=== PATIENT | female | born 1950 ===

== ENCOUNTER 2020-12-19 12:51 | Emergency (ER) | payer OTHER ==
[2020-12-19] MEDS ORDERED: Ketorolac Tromethamine 30 MG/ML VIAL ONE (13:54)
[2020-12-19] MEDS ORDERED: Metoprolol Tartrate 25 MG TAB ONE (13:54)
== END 2020-12-19 14:52 | disposition home or self-care (01) ==
LOC: NAV ERS 12:51
DX: I10 Essential (primary) hypertension (principal); R51.9 Headache, unspecified; Z85.3 Personal history of malignant neoplasm of breast; Z79.899 Other long term (current) drug therapy
CPT/HCPCS: 96372; 99283; J1885